=== PATIENT | female | born 1955 | race Caucasian/White ===

== ENCOUNTER → 2016-09-19 | Outpatient (CLI) | payer BC ==
--- NOTE | 2016-09-19 13:52 | MAM ---
History: Well woman exam. Date of exam: 09/19/2016 Services provided: Bilateral full field digital screening mammography. CAD, the images were reviewed with R2 computer aided detection. FINDINGS: Glandular tissue is scattered glandular contour with slightly increased mammographic density. Comparison with 2014 exam. No dominant mass, architectural distortion or clustered microcalcification. IMPRESSION: Benign exam Recommendation: Routine annual mammography BIRAD CATEGORY: 2 BENIGN Electronically signed by: Samira Knight MD 09/19/2016 1:51 PM CDT Workstation: [id number]
== END | disposition home or self-care (01) ==
LOC: MAMMO 13:11
PROVIDERS: ATTEND Family Medicine
DX: Z12.31 Encounter for screening mammogram for malignant neoplasm of breast (principal)

== ENCOUNTER 2017-02-12 13:43 | Emergency (ER) | payer BC, OTHER ==
[2017-02-12] MEDS ORDERED: ACETAMINOPHEN-CAFF-BUTALBITAL 1 EA TAB PO ONE (14:12)
[2017-02-12] MEDS ORDERED: IBUPROFEN 200 MG TAB PO ONE (14:12)
[2017-02-12 14:22] VITALS: O2SAT 100
--- NOTE | 2017-02-12 14:53 | RAD ---
EXAM DESCRIPTION: Chest,2 Views CLINICAL HISTORY: fall with pain COMPARISON: September 07, 2015 FINDINGS: Two-view chest x-ray shows cardiomediastinal silhouette and pulmonary vasculature to be within normal limits. The lungs are normally aerated and clear. Costophrenic angles are sharp. Mild degenerative changes of the spine are seen. IMPRESSION: No radiographic evidence of acute cardiopulmonary disease. Electronically signed by: John Peterson MD 02/12/2017 2:52 PM CDT
--- NOTE | 2017-02-12 14:56 | RAD ---
EXAM DESCRIPTION: Ribs,Right 2 Views CLINICAL HISTORY: 62 years Female, fall with pain COMPARISON: None. FINDINGS: Single AP view of the chest and 3 views of the ribs shows cardiac silhouette and pulmonary vasculature to be within normal limits. Lungs are normally aerated and clear. No pleural effusion. No pneumothorax. No definite displaced rib fracture or focal bone destruction. IMPRESSION: Negative rib series. Electronically signed by: John Peterson MD 02/12/2017 2:54 PM CDT
--- NOTE | 2017-02-12 14:59 | ED.PDOC ---
History of Present Illness - General Chief Complaint: Trauma Stated Complaint: Tripped and fell against a chair leg. R sided pain Time Seen by Provider: 02/12/17 14:07 Source: patient Exam Limitations: no limitations - History of Present Illness Initial Comments: the patient is a 62-year-old female presenting to the emergency room secondary to right lateral lower rib pain after she tripped and fell over a chair this morning. She is a progressive pain as the day has gone on. It is approximately 3 hours since the injury. She does have some pain with taking a deep breath as well as with twisting and turning. She is concerned for a rib fracture. No other injuries. Lungs are clear. There is no air or bony crepitus over the area. No obvious visible bruising. No deformity. Timing/Duration: momentarily Severity: moderate Improving Factors: nothing Worsening Factors: movement Associated Symptoms: chest pain Allergies/Adverse Reactions: Allergies NO KNOWN ALLERGY Allergy (Verified 09/07/15 08:06) Home Medications: Ambulatory Orders Tadmmawwcpgwi-Aetk-Obuqlpnuka [Fioricet] 1 ea PO Q8H PRN #21 tab 02/12/17 Beclomethasone Dip Nasal Spr [Beconase AQ Nasal [place]] 25 gm DEJA DAILY 02/12/17 Esomeprazole Magnesium [Nexium] 40 mg PO DAILY 02/12/17 Estrogens, Conjugated [Premarin] 0.3 mg PO DAILY 02/12/17 Review of Systems - Review of Systems Constitutional: States: no symptoms reported EENTM: States: no symptoms reported Respiratory: States: no symptoms reported Cardiology: States: chest pain Gastrointestinal/Abdominal: States: no symptoms reported Genitourinary: States: no symptoms reported Musculoskeletal: States: no symptoms reported Skin: States: no symptoms reported Neurological: States: no symptoms reported Endocrine: States: no symptoms reported All other Systems: No Change from Baseline Past Medical History (General) - Patient Medical History Hx Stroke: No Hx Congestive Heart Failure: No Hx Diabetes: No Hx Gastroesophageal Reflux: Yes Hx Cancer: No Hx Hepatitis C: No - Vaccination History Hx Tetanus, Diphtheria Vaccination: No Hx Influenza Vaccination: No Hx Pneumococcal Vaccination: Yes - Social History Hx Tobacco Use: Yes Hx Chewing Tobacco Use: No Hx Alcohol Use: No Hx Substance Use: No Hx Substance Use Treatment: No Hx Depression: No Feels Threatened In Home Enviroment: No Feels Threatened In a Relationship: No Hx Physical Abuse: No Hx Emotional Abuse: No Hx Suspected Abuse: No - Female History Patient is a Female of Child Bearing Age (10 -59 yrs old): No Patient : No Family Medical History - Family History Father Living Status: Hx Family Cancer: Yes - lung Physical Exam - Physical Exam General Appearance: Alert, Comfortable, No apparent distress Eye Exam: bilateral normal Ears, Nose, Throat: hearing grossly normal, normal ENT inspection, normal pharynx Neck: full range of motion, supple Respiratory: lungs clear, normal breath sounds, no respiratory distress, no accessory muscle use, other - ight lateral lower chest wall is uncomfortable to palpation. No obvious deformity. No crepitus. 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 This appears to be soft tissue injury only as the chest x-ray and rib series showed no evidence of any acute bony or pulmonary pathology. The patient will be written for some Fioricet for as needed use for pain control. Ibuprofen may actually prove more beneficial however. The patient does need to take big deep breaths and make herself cough to prevent atelectasis and infections. ER warnings were given. - EKG/XRAY/CT CT Ordered: No CT Interpretation Call Back: No Departure - Departure Clinical Impression: Contusion of rib on right side Qualifiers: Encounter type: initial encounter Qualified Code(s): S20.211A - Contusion of right front wall of thorax, initial encounter Disposition: Discharge to Home or Self Care Condition: Fair Departure Forms: ED Discharge - Pt. Copy, Patient Portal Self Enrollment Diet: regular diet Activity: increase activity as tolerated Referrals: Rahat Ortega MD [Primary Care Provider] - 1-2 Weeks Prescriptions: Vwhijnsjrbvwm-Kmzz-Yqfpqgzaqc [Fioricet] 1 ea PO Q8H PRN #21 tab PRN Reason: Pain Home Medications: Ambulatory Orders Yekdpcdspultn-Bksa-Wjhrbdcgkg [Fioricet] 1 ea PO Q8H PRN #21 tab 02/12/17 Beclomethasone Dip Nasal Spr [Beconase AQ Nasal [place]] 25 gm DEJA DAILY 02/12/17 Esomeprazole Magnesium [Nexium] 40 mg PO DAILY 02/12/17 Estrogens, Conjugated [Premarin] 0.3 mg PO DAILY 02/12/17 Additional Instructions: the patient is a 62-year-old female who tripped and fell this morning and injured her right lateral lower rib cage. This appears to be soft tissue injury only as the chest x-ray and rib series showed no evidence of any acute bony or pulmonary pathology. The patient will be written for some Fioricet for as needed use for pain control. Ibuprofen may actually prove more beneficial however. The patient does need to take big deep breaths and make herself cough to prevent atelectasis and infections. ER warnings were given.
[2017-02-12 15:15] VITALS: BP 130/56; TEMP 97.3
== END 2017-02-12 15:10 | disposition home or self-care (01) ==
LOC: ER 13:43
DX: S20.211A Contusion of right front wall of thorax, initial encounter (principal); K21.9 Gastro-esophageal reflux disease without esophagitis; Z87.891 Personal history of nicotine dependence; Z79.890 Hormone replacement therapy; Z79.899 Other long term (current) drug therapy; W18.09XA Striking against other object with subsequent fall, initial encounter; Y92.9 Unspecified place or not applicable

== ENCOUNTER 2017-04-25 13:34 | Emergency (ER) | payer BC, OTHER ==
--- NOTE | 2017-04-25 13:42 | ED.PDOC ---
History of Present Illness - General Chief Complaint: Chest Pain/IN Stated Complaint: chest pain Time Seen by Provider: 04/25/17 13:39 Source: patient, RN notes reviewed, Vital Signs reviewed Additional Information: Pt has been having chest discomfort since last week. No acute distress at this time. - History of Present Illness Timing/Duration: 1 week Severity/Quality: mild Location: substernal Chest Pain Radiation: shoulders, back Activities at Onset: none Prior Chest Pain/Cardiac Workup: no prior chest pain Improving Factors: nothing Worsening Factors: nothing Nitro Today/Relief: no nitro taken today Aspirin Treatment Today: 325 mg x 1, provided at home Associated Symptoms: denies symptoms Allergies/Adverse Reactions: Allergies NO KNOWN ALLERGY Allergy (Verified 09/07/15 08:06) Home Medications: Ambulatory Orders Esomeprazole Magnesium [Nexium] 40 mg PO DAILY 02/12/17 Estrogens, Conjugated [Premarin] 0.3 mg PO DAILY 02/12/17 Review of Systems - Review of Systems Constitutional: States: no symptoms reported EENTM: States: no symptoms reported Respiratory: States: no symptoms reported Cardiology: States: see HPI, chest pain Gastrointestinal/Abdominal: States: no symptoms reported Genitourinary: States: no symptoms reported Musculoskeletal: States: no symptoms reported Skin: States: no symptoms reported Neurological: States: no symptoms reported Endocrine: States: no symptoms reported Hematologic/Lymphatic: States: no symptoms reported Past Medical History (General) - Patient Medical History Hx Stroke: No Hx Congestive Heart Failure: No Hx Diabetes: No Hx Gastroesophageal Reflux: Yes Hx Cancer: No Hx Hepatitis C: No - Vaccination History Hx Tetanus, Diphtheria Vaccination: No Hx Influenza Vaccination: No Hx Pneumococcal Vaccination: Yes - Social History Hx Tobacco Use: Yes Hx Chewing Tobacco Use: No Hx Alcohol Use: No Hx Substance Use: No Hx Substance Use Treatment: No Hx Depression: No Hx Physical Abuse: No Hx Emotional Abuse: No Hx Suspected Abuse: No - Female History Patient : No Family Medical History - Family History Father Living Status: Hx Family Cancer: Yes - lung Physical Exam - Physical Exam General Appearance: Alert, Comfortable, No apparent distress Eyes, Ears, Nose, Throat Exam: PERRL/EOMI Neck: non-tender, full range of motion, supple, normal inspection Respiratory: chest non-tender, lungs clear, normal breath sounds, no respiratory distress, no accessory muscle use Cardiovascular/Chest: normal peripheral pulses, regular rate, rhythm, no edema, no murmur Gastrointestinal/Abdominal: non tender, soft Extremity: normal range of motion, non-tender, normal inspection, no pedal edema 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 Patient stable for discharge home with strict return precautions. - Results/Orders Results/Orders: Laboratory Tests 04/25/17 04/25/17 04/25/17 13:51 13:51 13:59 WBC 8.1 RBC 4.31 Hgb 14.0 Hct 41.3 MCV 95.7 MCH 32.5 H MCHC 34.0 RDW 13.0 Plt Count 262 MPV 8.9 Absolute Neuts (auto) 5.20 Absolute Lymphs (auto) 2.30 Absolute Monos (auto) 0.50 Absolute Eos (auto) 0.10 Absolute Basos (auto) 0.10 Neutrophils % 64.1 Lymphocytes % 27.9 Monocytes % 6.2 Eosinophils % 1.0 Basophils % 0.8 Sodium 143 Potassium 4.1 Chloride 107 Carbon Dioxide 26 Anion Gap 14.1 BUN 15 Creatinine 0.93 BUN/Creatinine Ratio 16.1 Random Glucose 84 Serum Osmolality 285.0 Calcium 9.4 Total Bilirubin 0.5 AST 31 ALT 35 Alkaline Phosphatase 82 Creatine Kinase 95 CK-MB (CK-2) 2.3 CK-MB (CK-2) % Not Reportable Troponin I < 0.02 B-Natriuretic Peptide 19.0 Serum Total Protein 7.6 Albumin 4.2 Globulin 3.4 Albumin/Globulin Ratio 1.2 04/25/17 04/25/17 14:00 14:53 Temperature 97.3 F L Pulse Rate [ 75 70 Apical] Respiratory 20 20 Rate Blood Pressure 144/70 138/83 [Left Arm] O2 Sat by Pulse 100 98 Oximetry Departure - Departure Clinical Impression: Chest pain, atypical Time of Disposition: 15:45 Disposition: Discharge to Home or Self Care Condition: Good Departure Forms: ED Discharge - Pt. Copy, Patient Portal Self Enrollment Instructions: DI for Chest Pain Referrals: Rahat Ortega MD [Primary Care Provider] - 1-5 Days Home Medications: Ambulatory Orders Esomeprazole Magnesium [Nexium] 40 mg PO DAILY 02/12/17 Estrogens, Conjugated [Premarin] 0.3 mg PO DAILY 02/12/17 Additional Instructions: Try over the counter Tylenol and/or Motrin for chest pain symptoms. No evidence of heart attack and no evidence of pneumonia at this time. Return to ER if condition worsens/unable to function.
--- NOTE | 2017-04-25 14:37 | RAD ---
Study: Frontal and Lateral Views of the Chest. Indication: chest pain Comparison: February 12, 2017. Impression: Heart size normal. Lungs clear. No acute osseous abnormality. Electronically signed by: Lucio Tidwell MD 04/25/2017 2:36 PM [facility]
[2017-04-25 14:54] VITALS: O2SAT 98
[2017-04-25 15:32] VITALS: BP 138/82; TEMP 97
== END 2017-04-25 15:40 | disposition home or self-care (01) ==
LOC: ER 13:34
DX: R07.89 Other chest pain (principal); K21.9 Gastro-esophageal reflux disease without esophagitis; Z87.891 Personal history of nicotine dependence

== ENCOUNTER → 2017-05-29 | Outpatient (CLI) | payer BC ==
--- NOTE | 2017-05-29 16:37 | CT ---
EXAM DESCRIPTION: Chest w/Contrast : Computed Tomography. CLINICAL HISTORY: COUGH COMPARISON: Chest x-ray 04/25/2017. TECHNIQUE: Spiral-axial scans at 5.0 mm intervals through the lungs and thorax with IV contrast. 2.5 mm lung algorithm axial reconstructions. Coronal and sagittal 2.0 Mm reconstructions. No adverse reactions. Total Exam DLP: 265.19 mGy-cm. This exam was performed according to our departmental dose-optimization program which includes automated exposure control, adjustment of the mA and/or kV according to patient size and/or use of iterative reconstruction technique; to reduce radiation dose to as low as reasonably achievable (ALARA). FINDINGS: Small bleb in the superior segment right lower lobe. No abnormal nodules in the lung parenchyma bilaterally. Small focal areas of bilateral pleural thickening. No pleural effusion. Minimal scarring in the bilateral lower lobe parenchyma. No pneumothorax. Heterogeneous contrast enhancement in the thyroid gland. No adenopathy or soft tissue masses in the base of the neck mediastinum or hilum regions. Great vessels show unremarkable enhancement. No significant atherosclerotic calcification. No enlarged nodes in the axilla. 1.5 cm lobulated object nonenhancing in the left lobe of the liver with Hounsfield density 15. A more multilobulated object with similar density in the lateral right lobe approximately 3 cm and a second lesion more inferiorly. These are both subcapsular. No subdiaphragmatic peritoneal fluid collection. Included pancreas and adrenal glands and spleen are unremarkable. Endplate spurs at some levels of the thoracic spine. Incompletely healed right eighth and ninth rib fractures. IMPRESSION: 1. Single bleb in the right lower lobe of the lung. No acute infiltrate. No mass, no nodule, no bronchiectasis, no pleural effusion or pneumothorax. Bilateral small focal areas of pleural thickening. 2. No soft tissue mass or adenopathy in the mediastinal or hilar regions. Incompletely healed fractures right ninth and eighth ribs laterally. 3. Multiple hepatic cysts. Electronically signed by: Ludwin Albarran MD 05/29/2017 4:36 PM [employer]
== END ==
LOC: CT 08:56
PROVIDERS: ATTEND Family Medicine
DX: R05 Cough (principal); K76.89 Other specified diseases of liver; Z87.891 Personal history of nicotine dependence

== ENCOUNTER → 2018-02-12 | Outpatient (CLI) | payer BC | LOC: GMAE 16:41 | PROVIDERS: ATTEND Family Medicine | DX: M79.89 Other specified soft tissue disorders (principal); M25.541 Pain in joints of right hand; M25.542 Pain in joints of left hand ==

== ENCOUNTER → 2018-05-22 | Outpatient (CLI) | payer BC ==
--- NOTE | 2018-05-24 16:45 | MAM ---
EXAM DESCRIPTION: 3D Screening BILATERAL : Digital Mammography. CLINICAL HISTORY: 63 years Female ANNUAL SCREENING no complaints. No personal history of breast cancer. Remote family history of breast cancer. No childbirth. Postmenopausal 26 years. Currently on HRT. Prior right breast biopsy. Lifetime risk of developing breast cancer (Tyrer-Cuzick model)(%): 9.6. COMPARISON: 2-D digital screening bilateral study 09/19/2016. TECHNIQUE: Bilateral CC and MLO projection full-field images, digital tomosynthesis mammographic technique. Bilateral digital 2-D full-field MLO images. CAD not available for tomosynthesis or 2-D images. FINDINGS: The breast parenchymal density pattern is: Heterogeneously dense breast tissue, which may obscure small masses. No skin thickening or nipple retraction. Small axillary lymph nodes bilaterally and microcalcifications. Posterior- lateral and anterior-medial intramammary lymph nodes left breast. No new focal, stellate mass or density, focal asymmetry , and no suspicious microcalcifications bilaterally. Stable mammograms compared to prior study. Taking into account, differences in mammographic technique. IMPRESSION: Benign exam. BIRAD CATEGORY: 2 BENIGN FINDINGS. RECOMMENDATIONS: FOLLOW UP: Routine digital bilateral mammographic screening, one year interval from April 2018. Written communication explaining the IMPRESSION and follow-up, will be mailed to the patient and referring health care provider. According to the [employer], yearly mammograms are recommended starting at age 40 and continuing as long as a woman is in good health. Any breast change noted on a breast self-exam should be reported promptly to the patient's healthcare provider. Breast MRI is recommended for women with an approximately 20-25% or greater lifetime risk of breast cancer, including women with a strong family history of breast or ovarian cancer and women who have been treated for Hodgkin's disease. A negative mammographic report should not delay tissue diagnosis in patients with significant clinical history or physical findings. Extremely dense breast tissue limits the sensitivity of digital mammography. Electronically signed by: Ludwin Albarran MD 05/24/2018 4:43 PM [employer]
== END ==
LOC: MAMMO 13:30
PROVIDERS: ATTEND Family Medicine
DX: Z12.31 Encounter for screening mammogram for malignant neoplasm of breast (principal)

== ENCOUNTER → 2019-01-13 | Outpatient (CLI) | payer BC | LOC: GMATM 16:56 | PROVIDERS: ATTEND Nurse Practitioner Family | DX: R00.2 Palpitations (principal) ==

== ENCOUNTER → 2019-04-08 | Outpatient (CLI) | payer BC, OTHER ==
--- NOTE | 2019-04-09 09:10 | CT ---
Procedure: CT LUNG SCREENING Exam Date: 04/08/2019. Ordering Provider: KIARRA LAU Clinical Indication: PERSONAL HISTORY OF TOBACCO USE current cigarette smoking. 45 pack years. This patient meets eligibility criteria for low-dose CT lung cancer screening. Comparison: CT scan of the chest with IV contrast April 2017. Technique: Using a multislice scanner, sequential helical axial imaging was obtained in the thorax, 2.5 mm thickness, 2.5 mm separation, from the level of the thoracic inlet through the lung bases without IV contrast. A low dose protocol was utilized for BMI less than 30: BMI: 21.2. CTDI: 1.76 mGy. 120. kVp. 45 mA. DLP 57.8 mGy-cm. 2D sagittal and coronal reconstructed images, 6.0 mm thickness, were obtained. This exam was performed according to our departmental dose optimization program which includes use of automated exposure control, adjustment of the mA and/or kV according to patient size and/or use of iterative reconstruction technique. Nodule measurements under 10 mm are given as mean value of 3 axes diameters. FINDINGS: Lungs and large airways: Scattered blebs more prevalent in the upper lung sánchez. Pleural parenchymal scarring in the inferior lingula. Also scarring in the posterior recess medial right lower lobe. No abnormal nodules and no masses. No focal infiltrates. Pleura and space: Pleural thickening in the apices and abutting the bilateral lower lobes. Otherwise negative. Mediastinum and spencer: evaluation limited by low dose technique and lack of IV contrast. Small nodes, no dominant soft tissue masses. Heart and great vessels: Minimal atherosclerotic calcification in the aortic arch. Chest wall, lower neck, axillae: Evaluation also limited by same factors as described above. Heterogeneous density of the thyroid gland, not enlarged. No definite nodule. Increasing density in the inferior right breast at the 6:00 and 7:00 position compared to the left breast, prior mammograms, and prior CT scan. Upper abdomen: Evaluation limited by low-dose technique. Radiodense material in the stomach which is mildly distended. Stable cysts in the right and left lobes of the liver. No free air or free fluid in the included peritoneal space.. Osseous structures: Evaluation limited by low dose MIP technique. No lytic or blastic lesions. IMPRESSION: 1. Emphysematous changes in the lungs which are chronic as well as bilateral parenchymal scarring. Bilateral sporadic focal pleural thickening. Stable from the prior study. No abnormal nodule, no mass. No focal infiltrate.. [facility] Best Practice Recommendations: please see below for Lung RADS category and FOLLOW-UP.* *Lung RADS category Category 1S - No nodule or definitely benign nodules (probability of malignancy less than 1%). Follow-up: Continue annual screening with Low Dose Chest CT in 12 months. 2. Increasing asymmetry or mass in the inferior right breast. Compared to prior screening study April [address] scan April 2017. Consider bilateral diagnostic digital breast tomosynthesis. Electronically signed by: Ludwin Albarran MD 04/09/2019 9:09 AM [facility]
== END ==
LOC: CT 13:00
PROVIDERS: ATTEND Family Medicine
DX: Z87.891 Personal history of nicotine dependence (principal); J43.9 Emphysema, unspecified; R91.8 Other nonspecific abnormal finding of lung field

== ENCOUNTER → 2019-05-22 | Outpatient (CLI) | payer BC ==
--- NOTE | 2019-05-22 17:16 | MAM ---
EXAM DESCRIPTION: 3D Diagnostic, Bilateral (accession [id number]), Breast,Right (accession [id number]): Ultrasound CLINICAL HISTORY: 64 yearsFemaleINCONCLUSIVE IMAGING . Possible abnormality in the inferior right breast seen on low-dose CT lung cancer screening examination March 2019. No complaints. No personal history of breast cancer. Remote family history of breast cancer. Menarche age 13. Childbirth none. Menopause age 37. Currently on HRT. Prior benign right breast biopsy. Lifetime risk of developing breast cancer (Tyrer-Cuzick model)(%): 9.3. COMPARISON: Bilateral screening. Digital breast tomosynthesis April 2018 and 2-D digital screening bilateral mammography August 2016. TECHNIQUE: Bilateral LM, CC, and MLO projection full-field images, digital tomosynthesis technique. Bilateral 2-D digital full-field images: LM, CC, and MLO projections. CAD available for 2-D images.. Transcutaneous scanning of the right breast utilizing sotelo-scale and Doppler modes. Scanning performed by the manager corporate marketing ; observation by Dr. Albarran. FINDINGS: The breast parenchymal density pattern is: Heterogeneously dense breast tissue, which may obscure small masses. No skin thickening or nipple retraction stable focal mass densities in the left breast. Solitary bilateral microcalcifications. Fibroglandular tissues more prominent in the right breast in the left. Most notable at the 6:00 and 7:00 locations middle and posterior third of the right breast. No new focal, stellate mass or density, focal asymmetry , and no suspicious microcalcifications bilaterally. Ultrasound: Scanning 6:00- 7:00 sectors of the right breast 6 cm from the nipple. Mostly fibroglandular tissues. Minimal fatty tissues. No dominant solid mass or distinct cyst. No parenchymal edema or large calcifications. No overlying skin changes.. IMPRESSION: Benign exam. BIRAD CATEGORY: 2 BENIGN FINDINGS. RECOMMENDATIONS: FOLLOW UP: Return to routine digital bilateral mammographic screening, one year interval from April 2019. Written communication explaining the IMPRESSION and follow-up, will be mailed to the patient and referring health care provider. The FINDINGS and the FOLLOW-UP plan were reviewed in person with the patient after the examination. According to the [employer], yearly mammograms are recommended starting at age 40 and continuing as long as a woman is in good health. Any breast change noted on a breast self-exam should be reported promptly to the patient's healthcare provider. Breast MRI is recommended for women with an approximately 20-25% or greater lifetime risk of breast cancer, including women with a strong family history of breast or ovarian cancer and women who have been treated for Hodgkin's disease. A negative mammographic report should not delay tissue diagnosis in patients with significant clinical history or physical findings. Extremely dense breast tissue limits the sensitivity of digital mammography. Electronically signed by: Ludwin Albarran MD 05/22/2019 5:14 PM [facility]
== END ==
LOC: MAMMO 12:55
PROVIDERS: ATTEND Obstetrics & Gynecology
DX: R92.8 Other abnormal and inconclusive findings on diagnostic imaging of breast (principal)
CPT/HCPCS: 76641; 77066; G0279

== ENCOUNTER → 2019-09-11 | Outpatient (CLI) | payer BC, OTHER ==
--- NOTE | 2019-09-11 10:28 | RAD ---
EXAM DESCRIPTION: Hand,Left 3 Views CLINICAL HISTORY: PAIN IN LEFT HAND COMPARISON: None Available. TECHNIQUE: AP, LATERAL, AND OBLIQUE FINDINGS: Three views left hand demonstrate advanced degenerative changes at the base of the thumb at the CMC articulation with hypertrophic changes sclerosis and subluxation of the metacarpal base. Modest degenerative changes involving the MCP joints and to a slightly greater degree the interphalangeal joints particularly distally noted. The distal radius and ulna and radiocarpal articulation is essentially normal. Bony destructive changes fracture or dislocation is not apparent. No soft tissue masses noted. IMPRESSION: 1. Advanced degenerative changes at the base of the thumb at the CMC joint with subluxation with modest PIP and slightly greater DIP joint degenerative arthropathy. 2. Bones are normally mineralized without destructive process. Electronically signed by: Yury Huff MD 09/11/2019 10:26 AM CDT
--- NOTE | 2019-09-11 10:31 | RAD ---
EXAM DESCRIPTION: Hand,Right 3 Views CLINICAL HISTORY: PAIN IN RIGHT HAND COMPARISON: April 11, 2009 TECHNIQUE: AP, LATERAL, AND OBLIQUE FINDINGS: Progressive moderately advanced degenerative changes involving the DIP joints of the long finger and fifth finger and moderate changes involving the other digits noted in comparison to prior study. Early changes of erosive osteoarthropathy should be considered. There are only mild degenerative changes at the base of the thumb at the CMC joint but some degenerative change in the interphalangeal joint of the thumb noted. No fracture or dislocation evident. No aggressive destructive changes or soft tissue mass noted. The distal radius and ulna and radiocarpal joint appears only minimally degenerative and narrowed. Previous area of soft tissue calcification along the proximal third metacarpal is no longer apparent. IMPRESSION: 1. Progressive degenerative changes particularly involving the DIP joints suggesting an element of erosive osteoarthropathy. Milder degenerative changes involving the base of the thumb and wrist noted. Electronically signed by: Yury Huff MD 09/11/2019 10:29 AM CDT
== END ==
LOC: RAD 08:58
PROVIDERS: ATTEND Orthopaedic Surgery
DX: M19.041 Primary osteoarthritis, right hand (principal); M19.031 Primary osteoarthritis, right wrist; M19.042 Primary osteoarthritis, left hand

== ENCOUNTER → 2020-02-04 | Outpatient (CLI) | payer BC, OTHER ==
--- NOTE | 2020-02-05 16:47 | MRI ---
EXAM DESCRIPTION: Brain w/wo Contrast CLINICAL HISTORY: BENIGN PAROXYSMAL POSITIONAL VERTIGO COMPARISON: None TECHNIQUE: Multiplanar, multi sequence MR images of the head are obtained with and without IV gadolinium contrast using standard imaging protocol. IAC imaging protocol was performed. FINDINGS: The midline structures are not displaced. Sulci are age appropriate. The lateral, third, and fourth ventricles are normal in size, shape, and anatomic positioning. Normal sotelo-white differentiation is seen. Normal flow voids are seen in the major intracranial vessels including the dural venous sinuses. There is no evidence of mass, mass effect, hydrocephalus, or acute intracranial hemorrhage. No abnormal extra-axial fluid collections are seen. No abnormal increased signal is seen on FLAIR, T2, or diffusion-weighted sequences. No abnormal mass or enhancement is seen in the internal auditory canal or cerebellopontine angle region. The pituitary is unremarkable. Visualized paranasal sinuses are unremarkable. The visualized orbits are unremarkable. Small amount of fluid is seen in the right mastoid air cells. IMPRESSION: Unremarkable pre and postcontrast MRI of the brain. Unremarkable MRI of the internal auditory canals. No abnormal mass or enhancement is seen. Moderate right mastoid effusion is seen. Electronically signed by: John Peterson MD 02/05/2020 4:45 PM CDT
== END ==
LOC: MRI 13:40
PROVIDERS: ATTEND Otolaryngology Otolaryngology/Facial Plastic Surgery
DX: Z01.812 Encounter for preprocedural laboratory examination (principal); H81.11 Benign paroxysmal vertigo, right ear; H90.3 Sensorineural hearing loss, bilateral; H74.8X1 Other specified disorders of right middle ear and mastoid

== ENCOUNTER → 2020-04-13 | Outpatient (CLI) | payer OTHER ==
--- NOTE | 2020-04-14 11:02 | CT ---
Procedure: CT LUNG SCREENING Exam Date: April 13, 2020. Ordering Provider: Freeman Craft Clinical Indication: CURRENT EVERYDAY SMOKER . Current cigarette smoker. 25 pack-year history. This patient meets eligibility criteria for low-dose CT lung cancer screening. Comparison: Low-dose CT lung cancer screening examination March [address] scan with contrast April 2017 Technique: Using a multislice scanner, sequential helical axial imaging was obtained in the thorax, 2.5 mm thickness, 2.5 mm separation, from the level of the thoracic inlet through the lung bases without IV contrast. A low dose protocol was utilized for BMI less than 30: BMI: 23. CTDI: 1.75 mGy. 120. kVp. 45 mA. DLP 61 mGy-cm. 2D sagittal and coronal reconstructed images, 6.0 mm thickness, were obtained. This exam was performed according to our departmental dose optimization program which includes use of automated exposure control, adjustment of the mA and/or kV according to patient size and/or use of iterative reconstruction technique. Nodule measurements under 10 mm are given as mean value of 3 axes diameters. FINDINGS: Lungs and large airways: bilateral parenchymal blebs in a centrilobular distribution and more prevalent in the upper lung sánchez, stable. Pleural-parenchymal scarring bilateral lower lobes, more on the right. Also in the inferior lingula. Stable since the prior study. No abnormal nodule or new mass or new infiltrate. Pleura and space: Bilateral focal sites of pleural thickening, more numerous in the lower thorax, along with more diffuse thickening but no acute process. No interval change. Mediastinum and spencer: evaluation limited by low dose technique and lack of IV contrast. No enlarged nodes and no dominant soft tissue masses. No changes. Heart and great vessels: Atherosclerotic calcification in the aorta. Stable since the prior study. Chest wall, lower neck, axillae: Evaluation also limited by same factors as described above. Normal size axillary nodes bilaterally. Upper abdomen: Evaluation limited by low-dose technique. No free air or free fluid in the included peritoneal space. Normal size and density of included spleen and adrenal glands. Stable cysts in the liver. Stomach minimally distended by food. Surgical clips gallbladder fossa with no fluid. Osseous structures: Evaluation limited by low dose MIP technique. Minimal spondylosis and minimal foraminal narrowing at some levels. No lytic or blastic lesions. IMPRESSION: Chronic densities in the lungs bilaterally. Minimal emphysematous changes. Stable since the prior study. No new mass or abnormal nodule or acute infiltrate. [facility] Best Practice Recommendations: please see below for Lung RADS category and FOLLOW-UP.* *Lung RADS category Category 1 - No nodule or definitely benign nodules (probability of malignancy less than 1%). Follow-up: Continue annual screening with Low Dose Chest CT in 12 months. Electronically signed by: Ludwin Albarran MD 04/14/2020 11:01 AM [facility]
== END ==
LOC: CT 13:21
PROVIDERS: ATTEND Family Medicine
DX: Z12.2 Encounter for screening for malignant neoplasm of respiratory organs (principal); R91.8 Other nonspecific abnormal finding of lung field; Z87.891 Personal history of nicotine dependence; J43.9 Emphysema, unspecified

== ENCOUNTER → 2020-04-14 | Outpatient (CLI) | payer OTHER | LOC: GMAE 10:46 | PROVIDERS: ATTEND Family Medicine | DX: Z00.00 Encounter for general adult medical examination without abnormal findings (principal) ==

== ENCOUNTER → 2020-04-16 | Outpatient (CLI) | payer OTHER ==
--- NOTE | 2020-04-17 13:44 | MRI ---
EXAM DESCRIPTION: Cervical Spine: MRI. CLINICAL HISTORY: 65 years Female DISC DISORDER COMPARISON: MRI scan of the cervical spine November 2017. TECHNIQUE: Multiplanar, high-field MRI, multiple sequences, non-contrast Cervical spine. FINDINGS: C3-C4: Disc desiccation with disc space maintained. Bilateral uncinate spurs larger on the right. Bilateral [id number] neural foraminal narrowing, more on the right. Tiny posterior midline bulge abutting the cord. No interval change. C4-C5: Disc desiccation with minimal posterior bulge abutting the cord. Bilateral uncinate spurs. Mild bilateral hypertrophic arthrosis of the facet joints. Mild left neuroforaminal narrowing and left neural foraminal stenosis. Stable since the prior study. C5-C6: Minimal disc desiccation with disc space maintained. Tiny posterior midline bulge. Bilateral small uncinate spurs. Bilateral mild neural foraminal narrowing. Bilateral facet joints unremarkable. No change from the prior study. C7-T1: Disc desiccation without bulging. Disc space maintained. Bilateral facet joints are negative. Canal and neural foramina are patent. No interval change. Normal signal in the C2-C3 disc and T1-T2 disc with no bulging. Disc spaces preserved. Canal and neural foramina are patent. Facet joints are unremarkable. Spinal alignment minimal kyphosis C2-C5. No cord compression or cord edema. Atlantoaxial joint unremarkable.. Again noted is partial nonfusion of the odontoid process with no abnormal marrow edema. Base of the cerebellar tonsils is just above the foramen magnum. Paravertebral soft tissues showing small lymph nodes abutting the submandibular glands, in the bilateral carotid spaces, and bilateral posterior cervical spaces. No interval change. Vertebral bodies are not compressed at any level. Normal marrow signal in the remaining vertebral bodies and the posterior elements. IMPRESSION: 1. The examination is essentially stable the prior study in November 2017. Multiple levels of uncinate spurs, and multifocal facet arthrosis and hypertrophy. 2. C4-C5 left neural foraminal stenosis. Stable since the prior study. Correlate for left C5 radiculopathy. 3. Please refer to FINDINGS for discussion of results at specific disc space levels. Electronically signed by: Ludwin Albarran MD 04/17/2020 1:42 PM [facility]
== END ==
LOC: MRI 12:35
PROVIDERS: ATTEND Family Medicine
DX: M50.121 Cervical disc disorder at C4-C5 level with radiculopathy (principal); M50.122 Cervical disc disorder at C5-C6 level with radiculopathy; M50.11 Cervical disc disorder with radiculopathy, high cervical region; M50.13 Cervical disc disorder with radiculopathy, cervicothoracic region; M47.22 Other spondylosis with radiculopathy, cervical region; M25.78 Osteophyte, vertebrae; M48.02 Spinal stenosis, cervical region